=== PATIENT | male | born 1985 | race Caucasian/White ===

== ENCOUNTER 2020-06-22 13:59 | Outpatient (REF) | payer BC, SELFPAY | END 2020-06-22 14:00 | disposition home or self-care (01) | LOC: HO.LAB 13:59 | PROVIDERS: Visit Provider Internal Medicine | DX: Z20.822 Contact with and (suspected) exposure to COVID-19 (principal) | CPT/HCPCS: 36415; C9803; U0003; U0005 ==

== ENCOUNTER 2021-03-29 09:20 | Emergency (ER) | payer BC, SELFPAY ==
--- NOTE | ~2021-03-29 | XR_ITS ---
EXAMINATION: XR CHEST CLINICAL INFORMATION: Family history of being Covid positive. Cough. COMPARISON: None TECHNIQUE: AP portable view of the chest was obtained. FINDINGS: No significant abnormality is noted involving the heart, lungs, mediastinum, bony thorax or soft tissues. XR/XR chest 1V IMPRESSION: No acute disease.
[2021-03-29 09:40] VITALS: BP 112/78; PULSE 91; RESP 18; TEMP 36.9; O2SAT 99; BMI 33.2
--- NOTE | 2021-03-29 10:17 | ED.URI ---
HPI - URI/Sore Throat General Chief Complaint: Upper Respiratory Symptoms Stated Complaint: flu like symptoms Time Seen by Provider: 03/29/21 10:17 Source: patient Mode of arrival: ambulatory Limitations: no limitations History of Present Illness HPI Narrative: patient has been on and off for a week and now with cough. He has chills. Now with shortness of breath. Sometimes has a coughing fit. Entire family has tested positive for ISABEL CAREY elicited complaint: fever, cough, sore throat, rhinorrhea and nasal congestion Onset (ago): day(s) Consistency: intermittent Severity: mild Able to tolerate fluids by mouth: Yes Associated symptoms: denies other symptoms, fever, chills and cough Related Data Allergies Allergy/AdvReac Type Severity Reaction Status Date / Time No Known Allergies Allergy Verified 04/27/20 08:12 [No Known Allergies*] Review of Systems Constitutional: Constitutional: Reports no additional constitutional complaints Eyes: Eyes: Reports no additional eye complaints ENT: Denies dizziness Cardiovascular: Cardiovascular: Reports no additional cardiovascular complaints Respiratory: Respiratory: Reports as per HPI Gastrointestinal: Gastrointestinal: Reports no additional gastrointestinal complaints Musculoskeletal: Musculoskeletal: Reports no additional musculoskeletal complaints Integumentary/Breasts: Skin/Breast: Denies rash Neurologic: Reports system reviewed and no additional complaints, except as documented, Denies dizziness and Denies Sensory deficit (Neuro) Psychiatric: Psychiatric: Denies anxiety PMF Past Medical History Surgical History No pertinent past surgical history Family History Family History Father Medical history unknown Mother Diabetes Hypertension Maternal Grandmother Cancer Social History Social History Advance Directives: No Advance Directives Information Provided: No Physical Exam Vital Signs: Vital Signs: Last Vital Signs Temp 98.1 F 03/29/21 10:49 Pulse 88 03/29/21 10:49 Resp 20 03/29/21 10:49 BP 126/85 03/29/21 10:49 Pulse Ox 98 03/29/21 10:49 Body Mass Index 33.2 Const: Other: looking well, paroxysmal coughing General: healthy appearing Nutritional Appearance: average body habitus Orientation/consciousness: oriented to person and patient oriented x3 Limitations: no limitations HENMT: Head: Yes normal to inspection Ears: external ears normal General nose exam: Normal external nose present Mouth: Normal oral and palatal mucosa present and oropharynx normal Throat: Yes posterior oropharynx normal Eyes: General: appearance normal, both eyes and all related structures Neck: Other: supple Neck: Yes normal visual inspection Chest: Chest palpation & inspection: normal inspection of the chest Resp: Other: no wheeze, no rales Auscultation: clear to auscultation bilaterally Cardio: Jugular venous distension: no JVD Rate: regular rate Rhythm: regular rhythm Heart sounds: S1 normal heart sound present and S2 normal heart sound present GI: Inspection: Yes normal to inspection Palpation (GI): Soft to palpation, nontender and No hepatosplenomegaly present Auscultation: normal bowel sounds : General: Yes no CVA tenderness Back/Spine/Pelvis: Back: no CVA tenderness Skin: General skin exam: no rashes or lesions noted Neuro: General: oriented to person and patient oriented x3 Cranial nerves: Yes CN's II-XII intact bilaterally Motor exam (neuro): 5/5 motor strength present throughout Sensory Exam: No Sensory deficit (Neuro) Extrem: General: Yes normal to inspection Psych: Appearance: grossly normal Course Reevaluation(s) Reevaluation #1: patient with exposure and symptoms consistent with COVID. Xray normal will dc home Time: 13:26 MDM - URI/Sore Throat Imaging Data Chest x-ray: Radiologist's impression: FINDINGS: No significant abnormality is noted involving the heart, lungs, mediastinum, bony thorax or soft tissues. XR/XR chest 1V IMPRESSION: No acute disease. ? Discharge Plan Discharge Clinical Impression: COVID-19 Upper respiratory infection Qualifiers: URI type: unspecified viral URI Qualified Code(s): J06.9 - Acute upper respiratory infection, unspecified Patient Disposition: Home, Self-Care Instructions: COVID-19 (Coronavirus Disease 2019) (ED) Referrals: Naif Rivers PA-C [Primary Care Provider] - 1 week
[2021-03-29 10:49] VITALS: BP 126/85; PULSE 88; RESP 20; TEMP 36.7; O2SAT 98
[2021-03-29] MEDS: Ondansetron ODT 4 MG TAB.RAPDIS TRANSLINGU (12:01)
== END 2021-03-29 13:44 | disposition home or self-care (01) ==
PROVIDERS: Emergency Provider Emergency Medicine; PCP Physician Assistant
DX: U07.1 COVID-19 (principal); J06.9 Acute upper respiratory infection, unspecified
CPT/HCPCS: 71045; 99283; 99284

== ENCOUNTER 2021-04-03 09:56 | Outpatient (REF) | payer BC, SELFPAY | END 2021-04-03 09:57 | disposition home or self-care (01) | LOC: HO.LAB 09:56 | PROVIDERS: Visit Provider Internal Medicine | DX: Z20.822 Contact with and (suspected) exposure to COVID-19 (principal) | CPT/HCPCS: C9803; U0003; U0005 ==

== ENCOUNTER 2023-10-28 14:14 | Outpatient (AMB) | payer OTHER, SELFPAY ==
--- NOTE | 2023-10-28 14:19 | AM.OFFWIN_ITS ---
Intake Vital Signs 10/28/23 14:20 Height 5 ft 9 in Weight 205 lb BMI 30.3 BP 122/76 Blood Pressure Location Rt brachial Position Sitting Pulse 76 Pulse Source Pulse Oximeter Temp 98.0 F Temp Source Oral Pulse Oximetry (%) 98 Intake Visit Reasons: EP Clearance for work/ Was Out Sick Intake Note: pt is here for clearance for work, was out of sick and needs a return to work note that he is cleared and no longer sick Patient Tobacco Use Status: Current everyday Tobacco user Allergies No Known Allergies [No Known Allergies*] Allergy (Verified 10/28/23 14:23) Do you need a note to return to daycare/school/sports/work: Yes HPI HPI Comments History of Present Illness Details Patient presents to the walk-in today for sick visit States he called out of work last week for fever and cough Symptoms have resolved and he would like to return to work He was instructed that he needs a letter stating he is able to return Denies cough, fever, chest pain, shortness of breath, earache, sore throat Has not taken any antipyretics in the last 24 hours [facility] Surgical History No pertinent past surgical history Family History (Reviewed 03/29/21 @ : by Hoang Mao MD) Father Medical history unknown Mother Diabetes Hypertension Maternal Grandmother Cancer Social History Patient Tobacco Use Status: Current everyday Tobacco user Review of Systems Const All systems reviewed & are unremarkable except as noted in HPI and below Physical Exam Vital Signs: Last Vital Signs Temp 98.0 F 10/28/23 14:20 Pulse 76 10/28/23 14:20 BP 122/76 10/28/23 14:20 Pulse Ox 98 10/28/23 14:20 BMI result Body Mass Index 30.3 General: awake, alert, oriented. Answers questions appropriately. Fully engaged in examination. Skin: warm, dry, intact HEENT: Normocephalic. Hearing intact. Cardiac: External chest normal in appearance. Respiratory: No cough, audible wheezing or stridor. Abdomen: without gross distension. MS: No obvious swelling or deformities. Neurological: Oriented to person, place, time and situation. Thought process intact. No gait abnormalities appreciated. Psychiatric: Appropriate mood and affect. Good judgment and insight. Assessment & Plan Assessment & Plan (1) URI (upper respiratory infection): Code(s): J06.9 - Acute upper respiratory infection, unspecified Plan Work note provided per patient request All questions and concerns were answered, patient agrees with the plan Follow up with PCP or return here for any new or worsening symptoms Coding Level of Care Code Est Pt Level 3 (82451) Diagnoses URI (upper respiratory infection) J06.9
[2023-10-28 14:20] VITALS: BP 122/76; PULSE 76; TEMP 36.7; O2SAT 98; BMI 30.3
== END 2023-10-28 14:55 | disposition home or self-care (01) ==
PROVIDERS: PCP Physician Assistant; Visit Provider Registered Nurse Emergency
DX: J06.9 Acute upper respiratory infection, unspecified (principal)
CPT/HCPCS: 99213

== ENCOUNTER 2023-12-25 09:04 | Outpatient (AMB) | payer OTHER, SELFPAY ==
--- NOTE | 2023-12-25 10:10 | MHC.OFFWIV ---
Intake Vital Signs 12/25/23 10:11 12/25/23 10:50 Height 5 ft 9 in Weight 216 lb BMI 31.9 BP 160/106 H 140/80 H Blood Pressure Location Rt brachial Position Sitting Pulse 84 Pulse Source Pulse Oximeter Temp 100.1 F Temp Source Oral Pulse Oximetry (%) 98 Oxygen Delivery Method Room Air Intake Visit Reasons: stomach cramps,diarrhea, vomiting Intake Note: pt c/o stomach cramps, diarrhea and vomiting. Started Saturday. Of note, ate at buffet Saturday evening. ? Food poisoning Patient Tobacco Use Status: Former Tobacco user Allergies No Known Allergies [No Known Allergies*] Allergy (Verified 12/25/23 10:11) Do you need a note to return to daycare/school/sports/work: Yes HPI stomach cramps,diarrhea, vomiting HPI Details This note is constructed using voice recognition software. While every effort has been made to ensure accuracy, nitroglycerin separator operator errors may have been included. The patient is a 38 year old male who presents to the clinic today with nausea, vomiting, diarrhea, stomach cramps since Saturday. He notes he tried a new buffet, and is unsure if he might have food poisoning. He denies fever, chills. He does have 2-3 episodes of vomiting and diarrhea each day, none today. He would like a note for work as he has been out of work for the last several days to this. He does report that he is still having some mild nausea, and some very mild epigastric tenderness. [facility] Surgical History No pertinent past surgical history Family History Father Medical history unknown Mother Diabetes Hypertension Maternal Grandmother Cancer Social History Patient Tobacco Use Status: Former Tobacco user Review of Systems Const All systems reviewed & are unremarkable except as noted in HPI and below Physical Exam Vital Signs: Last Vital Signs Temp 100.1 F 12/25/23 10:11 Pulse 84 12/25/23 10:11 BP 160/106 H 12/25/23 10:11 Pulse Ox 98 12/25/23 10:11 Oxygen Delivery Method Room Air 12/25/23 10:11 BMI result Body Mass Index 31.9 Const General: cooperative, healthy appearing, comfortable, no acute distress and alert Orientation/consciousness: patient oriented x3 Limitations: no limitations Resp Effort & Inspection: normal respiratory effort and able to speak in complete sentences Auscultation: clear to auscultation bilaterally Cardio Jugular venous distension: no JVD Palpation: normal PMI Rate: regular rate Heart sounds: S1 normal heart sound present, S2 normal heart sound present, no click, no gallops, no murmurs and no rubs GI Inspection: Yes normal to inspection Palpation (GI): Soft to palpation and Tenderness to palpation present (GI) in the epigastrum (Very mild) Percussion: Yes normal to percussion Auscultation: normal bowel sounds Skin General skin exam: no rashes or lesions noted, elasticity normal and turgor normal Neuro General: patient oriented x3 Psych Appearance: grossly normal Mental Status: mental status grossly normal Speech and movement: Normal speech and movement present Affect: normal affect Assessment & Plan Assessment & Plan (1) Gastroenteritis: Code(s): K52.9 - Noninfective gastroenteritis and colitis, unspecified Plan: Etiology unclear, may be food poisoning versus GI bug. Symptomatic management with Zofran and famotidine prescribed. Advised increased hydration. Letter provided for out of work until tomorrow to make sure that he has no symptoms for 24 hours prior to returning to work. Plan See above for full details and plan. Medications: New ondansetron 4 mg PO Q8H 2 days PRN 6 tabs 0RF nausea and vomiting famotidine 20 mg PO DAILY 5 days 5 tabs 0RF Coding Level of Care Code Est Pt Level 3 (75205) Diagnoses Gastroenteritis K52.9
[2023-12-25 10:11] VITALS: BP 160/106; PULSE 84; TEMP 37.8; O2SAT 98; BMI 31.9
[2023-12-25 10:50] VITALS: BP 140/80
== END 2023-12-25 11:05 | disposition home or self-care (01) ==
PROVIDERS: PCP Physician Assistant; Visit Provider Registered Nurse
DX: K52.9 Noninfective gastroenteritis and colitis, unspecified (principal)
CPT/HCPCS: 99213

== ENCOUNTER 2024-05-06 10:38 | Outpatient (AMB) | payer OTHER, SELFPAY ==
--- NOTE | 2024-05-06 10:42 | AM.OFFWIN_ITS ---
Intake Vital Signs 05/06/24 10:44 Height 5 ft 9 in Weight 222 lb BMI 32.8 BP 134/90 H Blood Pressure Location Lt brachial Position Sitting Pulse 82 Pulse Source Pulse Oximeter Temp 98.2 F Temp Source Oral Pulse Oximetry (%) 98 Oxygen Delivery Method Room Air Intake Visit Reasons: EP-cough Intake Note: Patient here for cough and fatigue that has been present for about 1 week. Patient Tobacco Use Status: Former Tobacco user Allergies No Known Allergies [No Known Allergies*] Allergy (Verified 05/06/24 10:44) Do you need a note to return to daycare/school/sports/work: Yes HPI HPI Comments History of Present Illness Details History The patient is a 39-year-old male presenting with symptoms following a recent illness represented primarily as an Upper Respiratory Infection. The patient reports experiencing high fevers, with the maximum recorded being 101?F, begi nning approximately one week ago. The fever was managed with Tylenol, effectively reducing the temperature, although it recurred persistently over the weekend. Associated symptoms included body aches and fatigue. The patient's fever resolved as of the night prior to the visit, with no recorded instances since. During the acute phase, the patient also noted fatigued states that led to workplace absenteeism; he has been calling out since April 30. A persistent mild cough has continued, though the patient reports a general improvement in condition. The patient has no history suggestive of wheezing but describes occasional shortness of breath, particularly when breathing nasally. 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 Additionally, during examination, there was mention of posterior pharyngeal cobblestoning consistent with Allergic Rhinitis; however, the patient reported no previous allergy diagnosis. A potential allergen source could be the patient's pet dog. Physical Exam General: Cooperative, healthy appearing, comfortable and no acute distress Orientation/consciousness: Patient oriented x3 Limitations: No limitations Head: Normal to inspection Ears: Hearing grossly normal bilaterally, external ears normal and TM's normal bilaterally Nose: Normal external nose present, Normal nares present and No nasal discharge present Face and sinus: Normal facial exam and Yes sinuses nontender Mouth: Normal oral and palatal mucosa present and moist mucous membranes Throat: Yes tonsils normal, Yes uvula midline. Posterior oropharynx erythema and cobblestoning Eyes: Appearance normal, both eyes and all related structures Neck: Normal visual inspection Respiratory: Clear to auscultation bilaterally. Normal respiratory effort, able to speak in complete sentences, no respiratory distress, not tachypneic, no tripod positioning and no use of accessory muscles Cardiovascular: Regular rate and rhythm. Normal S1 and S2 Skin: No rashes or lesions noted Neuro: Patient oriented x3 Extremities: Normal to inspection and Yes no clubbing, cyanosis or edema PFSH Surgical History (Reviewed 03/29/21 @ 10: by Hoang Mao MD) No pertinent past surgical history Family History (Reviewed 03/29/21 @ : by Hoang Mao MD) Father Medical history unknown Mother Diabetes Hypertension Maternal Grandmother Cancer Social History (Reviewed 03/29/21 @ : by Hoang Mao MD) Patient Tobacco Use Status: Former Tobacco user Review of Systems Const All systems reviewed & are unremarkable except as noted in HPI and below Physical Exam Vital Signs: Last Vital Signs Temp 98.2 F 05/06/24 10:44 Pulse 82 05/06/24 10:44 BP 134/90 H 05/06/24 10:44 Pulse Ox 98 05/06/24 10:44 Oxygen Delivery Method Room Air 05/06/24 10:44 BMI result Body Mass Index 32.8 Assessment & Plan Assessment & Plan (1) URI (upper respiratory infection): Code(s): J06.9 - Acute upper respiratory infection, unspecified Qualifiers: URI type: unspecified viral URI Qualified Code(s): J06.9 - Acute upper respiratory infection, unspecified Plan: Plan - Provide a note excusing the patient from work from April 30 until May 10 due to Upper Respiratory Infection and related fatigue symptoms. - Recommend avoiding potential allergens. Initiate sybo-xhn-jcwvyst antihistamine therapy, suggesting Xyzal/levocetirizine for symptomatic relief of Allergic Rhinitis. - Discuss with the patient that the viral infection is likely self-limiting. No further diagnostic testing for influenza, COVID-19, or RSV is warranted at this point due to symptom improvement. - Advise using supportive care measures such as continued hydration and rest as appropriate to facilitate recovery. Patient was informed and verbally consented to the use of an ambient scribe for clinic note documentation during this visit (2) Environmental allergies: Code(s): Z91.09 - Other allergy status, other than to drugs and biological substances Plan: as above Coding Level of Care Code Est Pt Level 4 (95936) Diagnoses Viral upper respiratory tract infection J06.9 URI type: unspecified viral URI Environmental allergies Z91.09
[2024-05-06 10:44] VITALS: BP 134/90; PULSE 82; TEMP 36.8; O2SAT 98; BMI 32.8
== END 2024-05-06 11:06 | disposition home or self-care (01) ==
PROVIDERS: PCP Physician Assistant; Visit Provider Physician Assistant
DX: J06.9 Acute upper respiratory infection, unspecified (principal); Z91.09 Other allergy status, other than to drugs and biological substances

== ENCOUNTER → 2024-05-06 10:38 | Outpatient (BNVA) | payer OTHER, SELFPAY | PROVIDERS: PCP Physician Assistant; Visit Provider Physician Assistant ==